=== PATIENT | female | born 1990 | race African-American/Black ===

== ENCOUNTER 2017-03-23 08:02 | Emergency (ER) | payer OTHER ==
[~2017-03-23] VITALS: Ht 154.9 cm; Wt 81.6 kg
[~2017-03-23 08:02] MED LIST: DOCU10CA PO; IBUP80TA PO; NUPE1OIN2 TOP; PRENTAB7 PO; TYLE650T30 PO; ZOLO25TA PO
[2017-03-23] MEDS ORDERED: ZYRT10CA PO (08:10)
[2017-03-23] MEDS ORDERED: ADVI200T PO (08:10)
[2017-03-23] MEDS ORDERED: MORPHINE 4 MG/ML 1ML SYRINGE IV ONE (09:15)
[2017-03-23] MEDS ORDERED: ONDANSETRON 4MG/2ML VIAL (J2405) IV ONE (09:15)
[2017-03-23] MEDS ORDERED: SOMA350T PO (11:50)
[2017-03-23] MEDS ORDERED: IBUP600T26 PO (11:50)
[2017-03-23] MEDS ORDERED: PERC5TAB6 PO (11:50)
[2017-03-23 12:34] VITALS: BP 111/80
== END 2017-03-23 12:36 | disposition home or self-care (01) ==
LOC: M ED 09:28
DX: M54.5 Low back pain (principal); F33.9 Major depressive disorder, recurrent, unspecified; Z79.899 Other long term (current) drug therapy
CPT/HCPCS: 96374; 96375; 99283; J2405; J3360

== ENCOUNTER 2017-04-15 14:25 | Emergency (ER) | payer OTHER ==
[~2017-04-15] VITALS: Ht 154.9 cm; Wt 81.6 kg
[2017-04-15 14:25] VITALS: BP 133/92
[~2017-04-15 14:25] MED LIST changes: +ADVI200T PO; +IBUP600T26 PO; +PERC5TAB6 PO; +SOMA350T PO; +ZYRT10CA PO
[2017-04-15] MEDS ORDERED: TIZANIDINE (14:32)
[2017-04-15] MEDS ORDERED: NAPR500T2 (14:32)
[2017-04-15] MEDS ORDERED: CETI10TA (14:32)
[2017-04-15] MEDS ORDERED: SERT1TAB16 (14:32)
[2017-04-15] MEDS ORDERED: SALI0.653 (15:15)
== END 2017-04-15 15:22 | disposition home or self-care (01) ==
LOC: M ED 15:07
DX: S00.31XA Abrasion of nose, initial encounter (principal); X58.XXXA Exposure to other specified factors, initial encounter; Y92.89 Other specified places as the place of occurrence of the external cause; Y93.89 Activity, other specified; Y99.9 Unspecified external cause status